=== PATIENT | male | born 1960 | race Caucasian/White ===

== ENCOUNTER → 2016-07-29 | Outpatient (CLI) | payer MEDICARE | LOC: KOH-I 09:56 | DX: R91.1 Solitary pulmonary nodule (principal); J43.9 Emphysema, unspecified | CPT/HCPCS: 71260; Q9965 ==

== ENCOUNTER 2016-08-26 17:38 | Emergency (ER) | payer MEDICARE | END 2016-08-26 21:00 | disposition left against medical advice (07) | LOC: ER1 17:38 | DX: Z53.21 Procedure and treatment not carried out due to patient leaving prior to being seen by health care provider (principal) ==

== ENCOUNTER → 2016-08-28 | Outpatient (CLI) | payer MEDICARE ==
[2016-08-28 16:49] LABS: HEMOGLOBIN 13.5 gm/dl (14.0-17.5); RED BLOOD COUNT 4.4 M/UL (4.20-5.50)
== END ==
LOC: LAB 16:18
PROVIDERS: Emergency Medicine
DX: E07.89 Other specified disorders of thyroid (principal); E11.42 Type 2 diabetes mellitus with diabetic polyneuropathy; E11.69 Type 2 diabetes mellitus with other specified complication; E29.1 Testicular hypofunction; E78.2 Mixed hyperlipidemia; F17.210 Nicotine dependence, cigarettes, uncomplicated; G44.89 Other headache syndrome; I10 Essential (primary) hypertension; I25.10 Atherosclerotic heart disease of native coronary artery without angina pectoris; K86.1 Other chronic pancreatitis; R10.13 Epigastric pain; R39.12 Poor urinary stream; R53.83 Other fatigue; Z71.6 Tobacco abuse counseling
CPT/HCPCS: 36415; 80053; 82150; 83690; 84484; 85027; 87086

== ENCOUNTER → 2016-09-16 | Outpatient (CLI) | payer MEDICARE | LOC: KOH-I 09:53 | DX: E07.89 Other specified disorders of thyroid (principal); E04.2 Nontoxic multinodular goiter | CPT/HCPCS: 76536 ==

== ENCOUNTER 2020-04-25 12:25 | Emergency (ER) | payer MEDICARE, OTHER ==
[~2020-04-25 12:25] MED LIST: ASPIRIN 325MG325 MG PO; HYGROTON TAB 2525 MG PO; IBUPROFEN600 MG PO; LANTUS100 UNIT/1 SQ; LIPITOR TAB 2020 MG PO; LOPRESSOR50 MG PO; PERCOCET 5/325 T1 EA PO; PROTONIX40 MG PO; TYLENOL 325MG325 MG PO; ZOFRAN4 MG PO; [UNRECOGNIZED DRUG - OTHER] SC
[2020-04-25 13:17] LABS: HEMOGLOBIN 16.2 gm/dl (14.0-17.5); RED BLOOD COUNT 5.28 M/UL (4.20-5.50); WHITE BLOOD COUNT 13.5 K/UL (4.5-11.0)
[2020-04-25] MEDS ORDERED: CITRATE OF MAG296 ML PO (16:51)
[2020-04-27] MEDS ORDERED: PRINIVIL20 MG PO (07:55)
== END 2020-04-25 17:10 | disposition home or self-care (01) ==
LOC: ER1 12:25
PROVIDERS: Emergency Medicine
DX: K59.00 Constipation, unspecified (principal); R11.0 Nausea; E11.9 Type 2 diabetes mellitus without complications; I10 Essential (primary) hypertension; E78.5 Hyperlipidemia, unspecified; F17.210 Nicotine dependence, cigarettes, uncomplicated; Z79.4 Long term (current) use of insulin; Z79.82 Long term (current) use of aspirin; Z79.899 Other long term (current) drug therapy; Z86.79 Personal history of other diseases of the circulatory system; Z90.49 Acquired absence of other specified parts of digestive tract
CPT/HCPCS: 80053; 81001; 82150; 83690; 85025; 96374; 96375; 99284; J2270; J2405; Q9965

== ENCOUNTER 2020-04-27 11:48 | Inpatient (IN) | payer MEDICARE, OTHER ==
[~2020-04-27] VITALS: Ht 180.3 cm; Wt 79.4 kg
[~2020-04-27 11:48] MED LIST changes: +CITRATE OF MAG296 ML PO; +PRINIVIL20 MG PO
[2020-04-27 13:28] LABS: HEMOGLOBIN 14.8 gm/dl (14.0-17.5); RED BLOOD COUNT 4.86 M/UL (4.20-5.50); WHITE BLOOD COUNT 9.4 K/UL (4.5-11.0)
[2020-04-27] MEDS ORDERED: NEURONTIN100 MG PO (16:19)
[2020-04-27] MEDS ORDERED: BACLOFEN10 MG PO (16:20)
[2020-04-27] MEDS ORDERED: ZETIA10 MG PO (16:21)
[2020-04-27] MEDS ORDERED: NOVOLIN R100 UNIT/2 SC (16:39)
[2020-04-27] MEDS ORDERED: VOLTAREN100 GM TP (16:40)
[2020-04-27] MEDS ORDERED: VIAGRA50 MG PO (16:41)
[2020-04-28 04:33] LABS: HEMOGLOBIN 14.1 gm/dl (14.0-17.5); RED BLOOD COUNT 4.7 M/UL (4.20-5.50); WHITE BLOOD COUNT 10.5 K/UL (4.5-11.0)
[2020-04-28 04:53] LABS: BUN/CREATININE RATIO 14 (0-10)
--- NOTE | 2020-04-28 12:46 | NUR ---
PT GIVEN SOAP SUDS ENEMA AND TOLERATED WELL
[2020-04-29 06:41] LABS: HEMOGLOBIN 13.6 gm/dl (14.0-17.5); RED BLOOD COUNT 4.67 M/UL (4.20-5.50); WHITE BLOOD COUNT 11.6 K/UL (4.5-11.0)
[2020-04-30] MEDS ORDERED: SENNA-TIME S T1 EACH PO (11:41)
[2020-04-30] MEDS ORDERED: CREON DR 12,001 EACH PO (11:41)
== END 2020-04-30 14:52 | disposition home or self-care (01) | DRG 440 ==
LOC: ER1 11:48 → M/S 16:04 → CDU 16:04 → M/S 21:16
PROVIDERS: Physician Assistant; Physician Assistant Medical; ADMIT Internal Medicine
DX: K85.90 Acute pancreatitis without necrosis or infection, unspecified (principal); K86.1 Other chronic pancreatitis; K59.00 Constipation, unspecified; I10 Essential (primary) hypertension; E11.22 Type 2 diabetes mellitus with diabetic chronic kidney disease; I12.9 Hypertensive chronic kidney disease with stage 1 through stage 4 chronic kidney disease, or unspecified chronic kidney disease; N18.30 Chronic kidney disease, stage 3 unspecified; Z79.4 Long term (current) use of insulin; E78.5 Hyperlipidemia, unspecified; I25.10 Atherosclerotic heart disease of native coronary artery without angina pectoris; Z95.1 Presence of aortocoronary bypass graft; F17.210 Nicotine dependence, cigarettes, uncomplicated; Z20.822 Contact with and (suspected) exposure to COVID-19
CPT/HCPCS: 36415; 80048; 80053; 81001; 82150; 82962; 83690; 83735; 85025; 85027; 86140; 86301; 87086; 90471; 96374; 96375; 99284; 99285; J1170; J2270; J2405; J7030; Q9965; U0002

== ENCOUNTER → 2020-06-23 | Outpatient (CLI) | payer MEDICARE, OTHER ==
[~2020-06-23] MED LIST changes: +BACLOFEN10 MG PO; +CREON DR 12,001 EACH PO; +NEURONTIN100 MG PO; +NOVOLIN R100 UNIT/2 SC; +SENNA-TIME S T1 EACH PO; +VIAGRA50 MG PO; +VOLTAREN100 GM TP; +ZETIA10 MG PO
== END ==
LOC: RAD 08:17
PROC: BQ3 Imaging, Non-Axial Lower Bones, Magnetic Resonance Imaging (MRI) (ICD-10-PCS; principal; 2020-06-23)
DX: M87.051 Idiopathic aseptic necrosis of right femur (principal); M25.751 Osteophyte, right hip; M94.251 Chondromalacia, right hip
CPT/HCPCS: 73722; A9577; Q9962

== ENCOUNTER → 2020-07-05 | Outpatient (CLI) | payer MEDICARE, OTHER | LOC: EMI 11:00 | DX: R20.0 Anesthesia of skin (principal); G45.9 Transient cerebral ischemic attack, unspecified; R29.818 Other symptoms and signs involving the nervous system; R29.898 Other symptoms and signs involving the musculoskeletal system | CPT/HCPCS: 70551 ==

== ENCOUNTER 2021-07-19 02:07 | Inpatient (IN) | payer MEDICARE ==
[~2021-07-19] VITALS: Ht 182.9 cm; Wt 79.4 kg
[~2021-07-19 02:07] MED LIST changes: -LANTUS100 UNIT/1 SQ
[2021-07-19 02:29] LABS: HEMOGLOBIN 10.7 gm/dl (14.0-17.5); RED BLOOD COUNT 3.7 M/UL (4.20-5.50); WHITE BLOOD COUNT 12.7 K/UL (4.5-11.0)
[2021-07-19 02:53] LABS: BUN/CREATININE RATIO 18 (0-10)
[2021-07-19] MEDS ORDERED: LANTUS100 UNIT/1 SQ (07:53)
[2021-07-19] MEDS ORDERED: CLONAZEPAM1 MG PO (16:10)
[2021-07-19] MEDS ORDERED: CITALOPRAM HBR10 MG PO (16:10)
[2021-07-19] MEDS ORDERED: CATAPRES 0.1MG0.1 MG PO (16:11)
[2021-07-19] MEDS ORDERED: ACETAMINOPHEN500 MG PO (16:14)
[2021-07-19] MEDS ORDERED: FLONASE 0.05% N16 GM (16:15)
[2021-07-19] MEDS ORDERED: PAIN RELIEF1 EACH TOP (16:17)
[2021-07-19] MEDS ORDERED: LISINOPRIL40 MG PO (16:17)
[2021-07-19] MEDS ORDERED: LORATADINE10 MG PO (16:17)
[2021-07-19] MEDS ORDERED: MELATONIN3 MG PO (16:18)
[2021-07-19] MEDS ORDERED: METHOCARBAMOL500 MG PO (16:19)
[2021-07-19] MEDS ORDERED: PROTONIX 40 MG40 M1 PO (16:19)
[2021-07-19] MEDS ORDERED: SENNA-DOCUSATE1 EACH PO (16:20)
[2021-07-19] MEDS ORDERED: TAMSULOSIN HCL0.4 MG PO (16:20)
[2021-07-19] MEDS ORDERED: ASPIRIN EC81 MG PO (16:21)
[2021-07-20 03:31] LABS: HEMOGLOBIN 9.9 gm/dl (14.0-17.5); RED BLOOD COUNT 3.5 M/UL (4.20-5.50); WHITE BLOOD COUNT 11.1 K/UL (4.5-11.0)
[2021-07-20 03:38] LABS: BUN/CREATININE RATIO 15 (0-10)
--- NOTE | 2021-07-20 09:33 | NUR ---
PATIENT TRANSFERRED TO MED SURG ROOM 4105. REPORT CALLED TO [facility].
--- NOTE | 2021-07-20 09:59 | NUR ---
PATIENT LEFT FLOOR PER TRANSPORT TO 4105
--- NOTE | 2021-07-20 12:06 | NUR ---
Patient arrived on floor at approximately 1000. Vitals were stable, IV line functioning adequately and had no complaints. Call light was given and bed was put in lowest position.
[2021-07-21 05:20] LABS: HEMOGLOBIN 9.6 gm/dl (14.0-17.5); RED BLOOD COUNT 3.28 M/UL (4.20-5.50); WHITE BLOOD COUNT 10.9 K/UL (4.5-11.0)
[2021-07-21 05:30] LABS: BUN/CREATININE RATIO 13 (0-10)
[2021-07-21] MEDS ORDERED: PERCOCET 5/325 T1 EA PO (09:52)
[2021-07-21] MEDS ORDERED: IPRAT-ALBUT 0.5-3 ML NEB (09:52)
[2021-07-21] MEDS ORDERED: AMLODIPINE BESYL5 MG PO (09:52)
[2021-07-21] MEDS ORDERED: PROAIR HFA8.5 GM INH (09:52)
[2021-07-21] MEDS ORDERED: LEVOFLOXACIN500 MG PO (09:52)
--- NOTE | 2021-07-21 14:53 | NUR ---
PATIENT ROOM AIR SAT WAS 95% WITH AMBULATION, SUSTAINED.
--- NOTE | 2021-07-21 17:15 | NUR ---
PATIENT USES [facility] AND WOULD BE UNABLE TO GET PRESCRIPTIONS THIS WEEKEND. SPOKE WITH DR TYRON GUTIÉRREZ TO GET MEDICATIONS SENT TO [facility] INSTEAD. THIS WAS ACCOMPLISHED AT APPROXIMATELY 4:30 PM, AND DISCHARGE COMPLETED WITH PATIENT TAKEN OFF FLOOR IN WHEELCHAIR AT APPROXIMATELY 5:15 PM. PATIENT EDUCATED TO [employer] HIS NEW MEDICATIONS AT [facility], AND GIVEN A PAPER PRESCRIPTION FOR HIS NARCOTIC MEDICATION TO HAVE FILLED ALSO AT [facility]. PATIENT'S WAS NOTIFIED WELL. PATIENT AND HAD NO ISSUE PICKING UP THESE MEDICATIONS AT [facility]. I CALLED THE PHARMACY TO VERIFY THAT THE MEDICATIONS HAD BEEN CALLED IN AND WERE READY FOR [employer], AND THE PHARMACY VERIFIED THAT THEY DID HAVE THREE MEDICATIONS READY FOR THE PATIENT. DR ACKERMAN WAS ALSO NOTIFIED EARLIER TODAY THAT THE PATIENT DID NOT QUALIFY FOR HOME O2 DUE TO MAINTAINING OXYGEN SATURATION ABOVE 95% WHILE EXERTING HIMSELF AND AMBULATING. DR ACKERMAN AGREED TO REMOVE THIS FROM THE DISCHARGE ORDER. RN COMPLETED THIS DISCHARGE WITHIN 15 MINUTES OF CONFIRMING THAT THE PATIENT'S PRESCRIPTIONS HAD BEEN SENT AND FILLED.
[2021-07-22] MEDS ORDERED: ALBUTEROL2.5 MG/3 M INH (02:54)
[2021-07-22] MEDS ORDERED: AEROECLIPSE II1 EACH MC (02:54)
== END 2021-07-21 17:12 | disposition home or self-care (01) | DRG 193 ==
LOC: ER1 02:07 → MED SURG 4 08:25 → CDU 08:25 → PROG CARE 15:55 → MED SURG 4 07-20 09:57
PROVIDERS: Emergency Medicine; Physician Assistant Medical; ADMIT Internal Medicine
DX: J18.9 Pneumonia, unspecified organism (principal); J96.01 Acute respiratory failure with hypoxia; F11.20 Opioid dependence, uncomplicated; J98.11 Atelectasis; Z20.822 Contact with and (suspected) exposure to COVID-19; F15.10 Other stimulant abuse, uncomplicated; N18.30 Chronic kidney disease, stage 3 unspecified; E83.42 Hypomagnesemia; I12.9 Hypertensive chronic kidney disease with stage 1 through stage 4 chronic kidney disease, or unspecified chronic kidney disease; J43.9 Emphysema, unspecified; F17.210 Nicotine dependence, cigarettes, uncomplicated; R13.10 Dysphagia, unspecified; I25.10 Atherosclerotic heart disease of native coronary artery without angina pectoris; E11.22 Type 2 diabetes mellitus with diabetic chronic kidney disease; E78.5 Hyperlipidemia, unspecified; Z95.1 Presence of aortocoronary bypass graft; Z79.82 Long term (current) use of aspirin; Z79.4 Long term (current) use of insulin; Z91.81 History of falling; Z99.81 Dependence on supplemental oxygen; Z93.0 Tracheostomy status; Z87.81 Personal history of (healed) traumatic fracture
CPT/HCPCS: 0240U; 36415; 36600; 71045; 80048; 80053; 80202; 80307; 81001; 82550; 82553; 82803; 82962; 83605; 83690; 83735; 83874; 84484; 85025; 85027; 87040; 87086; 92610; 93005; 94640; 94760; 96374; 96375; 97161; 97166; 99285; J1885; J2270; J2405; J2543; J3370; J7070; Q9967

== ENCOUNTER 2021-07-22 00:02 | Emergency (ER) | payer MEDICARE ==
[~2021-07-22 00:02] MED LIST changes: +ACETAMINOPHEN500 MG PO; +AMLODIPINE BESYL5 MG PO; +ASPIRIN EC81 MG PO; +CATAPRES 0.1MG0.1 MG PO; +CITALOPRAM HBR10 MG PO; +CLONAZEPAM1 MG PO; +FLONASE 0.05% N16 GM; +IPRAT-ALBUT 0.5-3 ML NEB; +LANTUS100 UNIT/1 SQ; +LEVOFLOXACIN500 MG PO; +LISINOPRIL40 MG PO; +LORATADINE10 MG PO; +MELATONIN3 MG PO; +METHOCARBAMOL500 MG PO; +PAIN RELIEF1 EACH TOP; +PROAIR HFA8.5 GM INH; +PROTONIX 40 MG40 M1 PO; +SENNA-DOCUSATE1 EACH PO; +TAMSULOSIN HCL0.4 MG PO
[2021-07-22] MEDS ORDERED: ALBUTEROL2.5 MG/3 M INH (02:54)
[2021-07-22] MEDS ORDERED: AEROECLIPSE II1 EACH MC (02:54)
== END 2021-07-22 04:31 | disposition home or self-care (01) ==
LOC: ER1 00:02
DX: S22.5XXA Flail chest, initial encounter for closed fracture (principal); R13.10 Dysphagia, unspecified; N18.30 Chronic kidney disease, stage 3 unspecified; E11.22 Type 2 diabetes mellitus with diabetic chronic kidney disease; I12.9 Hypertensive chronic kidney disease with stage 1 through stage 4 chronic kidney disease, or unspecified chronic kidney disease; E78.5 Hyperlipidemia, unspecified; Z95.1 Presence of aortocoronary bypass graft; W20.8XXA Other cause of strike by thrown, projected or falling object, initial encounter
CPT/HCPCS: 93005; 94664; 99283

== ENCOUNTER → 2021-07-31 | Outpatient (CLI) | payer MEDICARE ==
[~2021-07-31] MED LIST changes: +AEROECLIPSE II1 EACH MC; +ALBUTEROL2.5 MG/3 M INH
== END ==
LOC: HEART 5 10:28
DX: J93.0 Spontaneous tension pneumothorax (principal)
CPT/HCPCS: 71046; 94060; 94729

== ENCOUNTER 2021-09-10 04:18 | Emergency (ER) | payer MEDICARE ==
[2021-09-10 05:21] LABS: HEMOGLOBIN 13.1 gm/dl (14.0-17.5); RED BLOOD COUNT 4.57 M/UL (4.20-5.50); WHITE BLOOD COUNT 13.1 K/UL (4.5-11.0)
[2021-09-10 05:42] LABS: BUN/CREATININE RATIO 16 (0-10)
[2021-09-10] MEDS ORDERED: MIRALAX 119 GR119 GM PO (08:02)
[2021-09-10] MEDS ORDERED: DULCOLAX5 MG PO (08:18)
[2021-09-10] MEDS ORDERED: CIPRO500 MG PO (08:18)
[2021-09-10] MEDS ORDERED: METRONIDAZOLE500 MG PO (08:18)
== END 2021-09-10 09:02 | disposition home or self-care (01) ==
LOC: ER1 04:18
PROVIDERS: Physician Assistant Medical
DX: K59.00 Constipation, unspecified (principal); R33.9 Retention of urine, unspecified; E11.9 Type 2 diabetes mellitus without complications; Z79.82 Long term (current) use of aspirin
CPT/HCPCS: 51702; 80053; 81001; 82270; 82550; 82553; 83605; 83690; 84484; 85025; 87040; 93005; 96361; 96374; 96375; 99284; J2270; J2405; Q9967

== ENCOUNTER → 2021-10-01 | Outpatient (CLI) | payer MEDICARE ==
[~2021-10-01] MED LIST changes: +CIPRO500 MG PO; +DULCOLAX5 MG PO; +METRONIDAZOLE500 MG PO; +MIRALAX 119 GR119 GM PO
== END ==
LOC: KOH-I 11:30
DX: R10.9 Unspecified abdominal pain (principal); N26.1 Atrophy of kidney (terminal)
CPT/HCPCS: 76775; 76857

== ENCOUNTER → 2021-10-11 | Outpatient (CLI) | payer OTHER | LOC: MRI 11:00 | DX: K83.8 Other specified diseases of biliary tract (principal) | CPT/HCPCS: 36415; 74181; 80076 ==

== ENCOUNTER → 2021-10-30 | Outpatient (CLI) | payer MEDICARE | LOC: US 13:58 | DX: R55 Syncope and collapse (principal); R42 Dizziness and giddiness; I50.42 Chronic combined systolic (congestive) and diastolic (congestive) heart failure; S26.91XA Contusion of heart, unspecified with or without hemopericardium, initial encounter; I71.2 Thoracic aortic aneurysm, without rupture; I10 Essential (primary) hypertension; I65.23 Occlusion and stenosis of bilateral carotid arteries | CPT/HCPCS: 93880 ==

== ENCOUNTER → 2021-11-22 | Outpatient (CLI) | payer MEDICARE | LOC: US 11-12 08:30 | DX: N26.1 Atrophy of kidney (terminal) (principal) | CPT/HCPCS: 93975 ==